=== PATIENT | female | born 1995 | race Caucasian/White ===

== ENCOUNTER 2018-11-14 12:34 | Emergency (ER) | payer MEDICAID ==
[~2018-11-14] VITALS: Ht 160 cm; Wt 50.0 kg
[2018-11-14 12:42] VITALS: Ht 160 cm; Wt 50.0 kg
[2018-11-14] MEDS ORDERED: PROTONIX20 MG (12:43)
[2018-11-14] MEDS ORDERED: HYDROXYZINE HCL10 MG (12:43)
[2018-11-14] MEDS ORDERED: SEROQUEL100 MG PO (16:33)
[2018-11-14 17:05] VITALS: BP 116/70
== END 2018-11-14 17:05 | disposition home or self-care (01) ==
LOC: D.ER 12:34
DX: G47.00 Insomnia, unspecified (principal)